=== PATIENT | female | born 1975 | race Two or more races ===

== ENCOUNTER 2022-01-02 17:55 | Inpatient (IN) | payer OTHER ==
--- NOTE | 2022-01-02 18:09 | NUR ---
PTE SE RECIBE POR DOLOR DE [place] REFIERE PARAMEDICO Y PTE.
--- NOTE | 2022-01-02 20:46 | NUR ---
SE ORIENTA PTE SOBRE TX MEDICO EL CUAL REFIERE ENTENDER.SE LE EXTRAEN MUESTRAS BAJO MEDIDAS ASEPTICAS,PTE CANALIZADA EN MANO RT #20 .9NSS TRAIDO DE OTRA INSTITUCION,SE REALIZA EKG.
--- NOTE | 2022-01-02 22:54 | NUR ---
PTE REHUSA ESTUDIO YA QUE REFIERE SE LE HIZO UN CT EN [facility].
== END 2022-01-08 16:42 | disposition home or self-care (01) | DRG 419 ==
LOC: ER 17:55 → SEC-K 01-03 00:04 → SURH 01-03 00:04 → MEDI 01-03 00:04 → SEC-K 01-03 03:24 → SURH 01-03 09:23
PROVIDERS: ADMIT Internal Medicine; ATTEND Internal Medicine
PROC: BF37ZZZ Magnetic Resonance Imaging (MRI) of Pancreas (ICD-10-PCS; 2022-01-03)
PROC: 0FT44ZZ Resection of Gallbladder, Percutaneous Endoscopic Approach (ICD-10-PCS; principal; 2022-01-07)
PROC: BF532Z0 Other Imaging of Gallbladder and Bile Ducts using Fluorescing Agent, Intraoperative (ICD-10-PCS; 2022-01-07)
DX: K80.10 Calculus of gallbladder with chronic cholecystitis without obstruction (principal); R10.11 Right upper quadrant pain; K76.0 Fatty (change of) liver, not elsewhere classified; E11.9 Type 2 diabetes mellitus without complications; Z79.4 Long term (current) use of insulin; Z20.822 Contact with and (suspected) exposure to COVID-19